=== PATIENT | female | born 1980 | race Caucasian/White ===

== ENCOUNTER 2018-10-31 13:35 | Emergency (ER) | payer OTHER ==
[~2018-10-31] VITALS: Ht 152.4 cm; Wt 47.6 kg
[2018-10-31] MEDS ORDERED: FLAGYL500 MG PO (14:12)
== END 2018-10-31 15:38 | disposition home or self-care (01) ==
LOC: ED 13:35
DX: R51 Headache (principal); Z00.8 Encounter for other general examination; Z87.891 Personal history of nicotine dependence
CPT/HCPCS: 99283